=== PATIENT | male | born 1980 | race Caucasian/White ===

== ENCOUNTER 2024-12-23 07:49 | Day surgery (SDC) | payer OTHER, SELFPAY ==
[2024-08-12 09:58] VITALS: BMI 32.1
[2024-12-13 13:33] VITALS: BMI 32.1
--- OUTSIDE RECORDS SUMMARY | 2024-12-23 07:58 | XMS_ITS | Clinical Summary ---
Author Organization [facility] Address [address] [place] [id number] Care Team Providers Care Exchange Mechanic Name Role Phone Unavailable Primary Care Provider Unavailabl e Social History Tobacco Use Types Packs/Day Years Used Date Smoking Tobacco: Never Assessed Sex and Gender Information Value Date Recorded Sex Assigned at Not on file Legal Sex Male 8:24 PM CDT Gender Identity Not on file Sexual Orientation Not on file Plan of Treatment Health Maintenance Due Date Last Done Comments Colorectal Cancer Screening Colonoscopy (10 Years) 1980 Annual Physical 08/07/1982 Hepatitis C 08/07/1997 DTaP, Tdap and Td Vaccines ( 1 - Tdap) 08/07/1998 Hepatitis B Vaccines (1 of 3 - 19+ 3-dose series) 08/07/1998 HPV Vaccines (1 - 3-dose SCD M series) 08/07/2006 COVID-19 Vaccine (2023-2 5 season) 2024 Meningococcal B Vaccine Aged Out No l onger eligible based on patient's age to complete this topic Meningococcal Vaccine Aged Out No amarilys tracee eligible based on patient's age to complete this topic Pneumococcal Vaccine: Pediat rics (0 to 5 Years) and At-Risk Patients (6 to 49 Years) Aged Out No longer eligible b ased on patient's age to complete this topic RSV Immunizations Under 20 Months Aged Out No longer eligible based on patient's age to complete this topic
[2024-12-23 08:37] VITALS: BMI 31.8
[2024-12-23 08:39] VITALS: BP 151/90; PULSE 87; RESP 16; TEMP 36.8; O2SAT 100
--- NOTE | 2024-12-23 08:51 | SUR.PREOP ---
pt stated last miralax was done at 0500. Rn explained that for 929 procedure second miralax should of been done at 2300 day before procedure. Rn spoke with anesth and OK to preceed bc more than 2 hours. Pt upset that was given wrong instructions. Would like to speak to dr fowler and anesth. [employer] Mechanic Helper made aware. Will continue to monitor.
--- NOTE | 2024-12-23 09:14 | P.PNAN_ITS ---
Anes - Initial Pre Proc Eval Procedure: Operation Date: 12/23/24 09:30 Proposed Procedures p Screening Colonoscopy - Amaury Belcher MD Date/Time: 12/23/24 09:14 Surgeon: Amaury Belcher MD Pre Op Diagnosis: Screening for Neoplasm of Colon Patient Data Age: 44 Gender: M Height: 1.8 m Weight: 103.75 kg Last Vital Signs Temp 98.3 F 12/23/24 08:39 Pulse 87 12/23/24 08:39 Resp 16 12/23/24 08:39 BP 151/90 H 12/23/24 08:39 Pulse Ox 100 12/23/24 08:39 O2 Del Method Room Air 12/23/24 08:39 Allergies Allergy/AdvReac Type Severity Reaction Status Date / Time No Known Allergies Allergy Verified 12/23/24 08:35 Home Medications ?Medication ?Instructions ?Recorded ?Confirmed ?Type amlodipine 5 mg-benazepril 10 mg 1 cap PO DAILY #90 caps 08/01/24 12/23/24 Rx capsule simvastatin 20 mg tablet 20 mg PO DAILY #90 tabs 08/01/24 12/23/24 Rx Patient hx anesthesia problems: none Family hx anesthesia problems: none Results Review: All pre-operative results and documents have been reviewed as part of the pre- operative evaluation. [facility] Past Medical History Medical History (Updated 04/08/24 @ 09:14 by MARY Braswell) Left hand pain Lateral epicondylitis of left elbow HLD (hyperlipidemia) Hypertension Surgical History Surgical History ) H/O vasectomy H/O shoulder surgery Social History Social History ) Social History: 04/08/24 very confident with medical forms Smoking status: Never smoker Alcohol intake: never Substance use: never Substance use type: former substance user Do You Feel Safe in your Home?: Yes Lack of Transportation: No Lack of Food: Never True Current Housing: I Have Housing Concerned About Future Housing: No Difficulty Paying Gas/Electric Bills: No Difficulty Paying for Meds: No Currently Unemployed: No Education: Bachelor's Degree Difficulty w/ Childcare or Family Care: No Living arrangements: with family Occupation/Education: occupation 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 Informed Consent: The patient's anesthetic plan and its attendant risks and benefits were discussed with the patient/family/POA. Questions were solicited and answers provided to the satisfaction of the patient/family/POA.
[2024-12-23] MEDS: LACTATED RINGERS 1,000 ML 150 ML IV CONT (09:21)
--- NOTE | 2024-12-23 09:34 | HP_ITS ---
This report was moved to the correct visit on 12/26/2024. The original report was signed by Amaury Belcher MD on 12/23/24 0934. H&P: HPI History of Present Illness Date/Time: 12/23/24 09:33 Chief Complaint: Screening colonoscopy Narrative: This is the patient's first colonoscopy. There are no GI symptoms and there is no family history of colorectal cancer. Review of Systems Review of Systems: All systems reviewed & are unremarkable except as noted in HPI and below PMFSH Past Medical History Medical History (Updated 12/23/24 @ 09:34 by Amaury Belcher MD) Left hand pain Lateral epicondylitis of left elbow HLD (hyperlipidemia) Hypertension Surgical History Surgical History ) H/O vasectomy H/O shoulder surgery Social History Social History ) Social History: 04/08/24 very confident with medical forms Smoking status: Never smoker Alcohol intake: never Substance use: never Substance use type: former substance user Do You Feel Safe in your Home?: Yes Lack of Transportation: No Lack of Food: Never True Current Housing: I Have Housing Concerned About Future Housing: No Difficulty Paying Gas/Electric Bills: No Difficulty Paying for Meds: No Currently Unemployed: No Education: Bachelor's Degree Difficulty w/ Childcare or Family Care: No Living arrangements: with family Occupation/Education: occupation 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 Spiritual care concerns: No Agree to blood products: Yes Meds Home Medications and Allergies Home Medications ?Medication ?Instructions ?Recorded ?Confirmed ?Type amlodipine 5 mg-benazepril 10 mg 1 cap PO DAILY #90 caps 08/01/24 12/23/24 Rx capsule simvastatin 20 mg tablet 20 mg PO DAILY #90 tabs 08/01/24 12/23/24 Rx Allergies Allergy/AdvReac Type Severity Reaction Status Date / Time No Known Allergies Allergy Verified 12/23/24 08:35 Exam Const: General: cooperative and healthy appearing Resp: Effort & Inspection: normal respiratory effort and able to speak in complete sentences Auscultation: clear to auscultation bilaterally Cardio: Rate: regular rate Rhythm: regular rhythm GI: Inspection: normal to inspection GI Palp: No No hepatosplenomegaly present Auscultation: normal bowel sounds Rectal Exam: deferred Skin: General skin exam: normal color Psych: Appearance: grossly normal Mental Status: mental status grossly normal Assessment and Plan Assessment and plan (1) Encounter for screening colonoscopy: Code(s): Z12.11 - Encounter for screening for malignant neoplasm of colon Status: Acute Assessment and Plan: The patient is deemed a good candidate for the procedure. Consent signed. Will proceed. Please be advised this is a medical document. It is intended for nxql-[id number] communication. It is written in medical language and may contain unfamiliar abbreviations or verbiage. Medical documents are intended to carry relevant information, facts as evident, and the clinical opinion of the practitioner at the time of the encounter. This report may have been done utilizing a voice recognition system. Attempts have been made to correct errors. However, there may be uncorrected grammatical, spelling, and recognition errors present. The file time of this note does not necessarily represent the time the patient was seen. Report Initialized date/time: Amaury Belcher MD 12/23/24933 Electronically signed by: Amaury Belcher MD 12/23/24 0934
--- NOTE | 2024-12-23 09:49 | WPDANESPN ---
Anes - Prog Note Post-Op Date/Time: 12/23/24 09:49 Vital Signs: Last Vital Signs Temp 98.3 F 12/23/24 08:39 Pulse 87 12/23/24 08:39 Resp 16 12/23/24 08:39 BP 151/90 H 12/23/24 08:39 Pulse Ox 100 12/23/24 08:39 O2 Del Method Room Air 12/23/24 08:39 Pain Score (VAS): no Patient Feedback: Patient satisfied with anesthetic care.
--- NOTE | 2024-12-23 09:54 | WPDANESPN ---
Anes - Prog Note Post-Op Date/Time: 12/23/24 09:54 Vital Signs: Last Vital Signs Temp 98.3 F 12/23/24 08:39 Pulse 87 12/23/24 08:39 Resp 16 12/23/24 08:39 BP 151/90 H 12/23/24 08:39 Pulse Ox 100 12/23/24 08:39 O2 Del Method Room Air 12/23/24 08:39 Pain Score (VAS): no Patient Feedback: Patient satisfied with anesthetic care.
[2024-12-23 10:07] VITALS: BP 130/75; PULSE 82; RESP 16; O2SAT 99
[2024-12-23 10:17] VITALS: BP 128/80; PULSE 80; RESP 16; O2SAT 100
[2024-12-23 10:27] VITALS: BP 123/84; PULSE 82; RESP 18; O2SAT 100
== END 2024-12-23 10:36 | disposition home or self-care (01) ==
PROVIDERS: PCP Nurse Practitioner Family; Visit Provider Internal Medicine Gastroenterology
PROC: 0DJD8ZZ Inspection of Lower Intestinal Tract, Via Natural or Artificial Opening Endoscopic (ICD-10-PCS; CPT 45378; principal; 2024-12-23 09:30)
DX: Z12.11 Encounter for screening for malignant neoplasm of colon (principal); K52.9 Noninfective gastroenteritis and colitis, unspecified; K63.3 Ulcer of intestine
CPT/HCPCS: 45380

== ENCOUNTER 2024-12-23 10:55 | Outpatient (NON) | payer OTHER, SELFPAY ==
--- NOTE | 2024-12-23 | S_PTH ---
PATIENT: Andrew Shah LOC: [facility] U#:[id number] AGE/SX: 44/M ROOM: RE12/23/[address]: Amaury Belcher MD : 1980 BED: DIS: 12/23/2024 SPEC #: [id number] RECD: 12/24/24 08:48 STATUS: SOUShahla REQ #: [id number] MARCELO: 12/23/24 00:[address]: Amaury Belcher DEPT: [facility] Surgical RECD BY: Gabriel Cruz ENTERED: 12/24/24 08:49 SP TYPE: Surgical OTHR DR: Tita Dhaliwal APRN Tissues: A - Biopsy Procedures: Hematoxylin and Eosin Stain Gross and Microscopic Level 4 Comments: @ Originally on account #[id number] Req #[id number]
--- OUTSIDE RECORDS SUMMARY | 2024-12-24 11:49 | XMS_ITS ---
Author Organization Unknown ENCOUNTERS Encounter Performer Location Date Diagnosis Diagnosis Status Outpatient [address] [id number] [facility] *Note: Encounters from your own facility or health system may be excluded. Allergies, Adverse Reactions, Alerts Allergen Type Severity Identification Date Medications Name Date Quantity Days Supplied GPI Number
== END 2024-12-23 10:56 | disposition home or self-care (01) ==
LOC: ANHLAB 12-24 10:56
PROVIDERS: PCP Nurse Practitioner Family; Visit Provider Internal Medicine Gastroenterology
DX: K63.3 Ulcer of intestine (principal)
CPT/HCPCS: 88305